=== PATIENT | male | born 1980 | race Caucasian/White ===

== ENCOUNTER 2023-10-30 17:31 | Emergency (ER) | payer BC, SELFPAY ==
--- NOTE | 2023-10-30 17:47 | ED.GENADULT ---
HPI - General Adult General Chief complaint: Abdominal Pain Stated complaint: decrease in appetite,no bowelmovement x3 gas pains Time Seen by Provider: 10/30/23 17:47 Source: patient, RN notes reviewed and old records reviewed Mode of arrival: ambulatory Limitations: no limitations History of Present Illness HPI narrative: 43-year-old male presents to the [facility] with complaints of no bowel movement, nausea, vomiting, bloating, abdominal pain for 2 days. Patient states that he has been camping, yesterday woke up with abdominal distension, nausea, vomiting and discomfort. Denies fevers. States he did tolerate water. Reports that he was hoping get IV fluids, explained to patient that we do not do IV fluids here Related Data Home Medications Medication Instructions Recorded Confirmed baclofen 10 mg tablet 10 mg PO TID 10/30/23 10/30/23 cholecalciferol (vitamin D3) 1,250 1,250 mcg PO WEEKLY 10/30/23 10/30/23 mcg (50,000 unit) capsule meclizine 25 mg tablet 25 mg PO DAILY PRN Dizziness Or 10/30/23 10/30/23 Vertigo Allergies Allergy/AdvReac Type Severity Reaction Status Date / Time No Known Allergies Allergy Verified 10/30/23 17:42 Review of Systems Review of Systems: All systems reviewed & are unremarkable except as noted in HPI and below Constitutional: Constitutional: Reports no additional constitutional complaints Eyes: Eyes: Reports no additional eye complaints ENT: Reports system reviewed and no additional complaints, except as documented Cardiovascular: Cardiovascular: Reports no additional cardiovascular complaints, Denies chest pain and Denies dyspnea Respiratory: Respiratory: Reports no additional respiratory complaints, Denies chest congestion, Denies cough and Denies dyspnea Gastrointestinal: Gastrointestinal: Reports as per HPI, Reports abdominal pain, Reports constipation, Reports nausea and Reports vomiting Musculoskeletal: Musculoskeletal: Reports no additional musculoskeletal complaints Integumentary/Breasts: Skin/Breast: Reports system reviewed and no additional complaints, except as docu Neurologic: Reports system reviewed and no additional complaints, except as documented Psychiatric: Psychiatric: Reports no additional psychiatric complaints Allergic/Immunologic: Allergic/Immunologic: Reports no additional allergic/immunologic complaints [facility] Family History Family History Father Family history of obesity Patient's father is in good health Mother Family history of obesity Patient's mother is in good health Family history of diabetes mellitus in first degree relative Sibling Family history of migraine headaches Patient's sister is in good health Patient's brother is in good health Grandparent Family history of alcoholism Family history of Alzheimer's disease Other Asthma Diabetes mellitus Social History Social History Second hand tobacco smoke exposure: Yes Alcohol intake: current Comments At the time of my signature, I reviewed and agree with the nursing past medical, surgical, social, and family history. There is no relevant family history pertinent to the patient complaint. Exam Const: General: cooperative, healthy appearing, well developed, alert, uncomfortable, well groomed and well nourished Nutritional Appearance: well nourished Orientation/consciousness: patient oriented x3 Limitations: no limitations HENMT: Head: normal to inspection Ears: hearing grossly normal bilaterally and external ears normal Face/Nose/Sinus: Normal external nose present, Normal nares present, Normal nasal mucous membranes and turbinates present, normal facial exam and face symmetric Face and sinus: normal facial exam and face symmetric Mouth: Yes Normal oral and palatal mucosa present, Yes lip normal, Yes tongue normal and Yes moist mucous membranes Throat: poste
[2023-10-30 17:48] VITALS: BP 120/82; PULSE 95; RESP 16; TEMP 36.9; O2SAT 98
== END 2023-10-30 18:00 | disposition left against medical advice (07) ==
PROVIDERS: Emergency Provider Nurse Practitioner; PCP Nurse Practitioner Family
DX: R10.84 Generalized abdominal pain (principal); E55.9 Vitamin D deficiency, unspecified
CPT/HCPCS: 99211; G0463